=== PATIENT | male | born 1990 | race American Indian/Alaskan Native ===

== ENCOUNTER 2020-03-10 20:22 | Emergency (ER) | payer SELFPAY ==
[2020-03-10 20:28] VITALS: BP 111/70
--- NOTE | 2020-03-10 20:38 | Emergency Department Report ---
Blank Doc - Documentation Documentation: 29-year-old male that presents with penile shaft swelling. This initial assessment/diagnostic orders/clinical plan/treatment(s) is/are subject to change based on patient's health status, clinical progression and re- assessment by fellow clinical providers in the ED. Further treatment and workup at subsequent clinical providers discretion. Patient/guardians urged not to elope from the ED as their condition may be serious if not clinically assessed and managed. Initial orders include: 1- Patient sent to MAIN ED for further evaluation and treatment 2- UA
[2020-03-10] MEDS ORDERED: metroNIDAZOLE 500 MG TAB PO STA (22:51)
[2020-03-10] MEDS ORDERED: AZITHROMYCIN 250 MG TAB PO ONE (22:51)
[2020-03-10] MEDS ORDERED: LIDOCAINE-MPF (1%) 10 MG/1 ML VIAL 5 ML INFILTRATI ONE (22:51)
--- NOTE | 2020-03-10 22:53 | Emergency Department Report ---
ED Male HPI - General Chief complaint: Urogenital-Male Stated complaint: PAIN AND DISCOMFORT ALL OVER Time Seen by Provider: 03/10/20 20:36 Source: patient Mode of arrival: Ambulatory Limitations: No Limitations - History of Present Illness Initial comments: During the history and physical examination, I am door puller and escorted by supply chain engineer/Equipment Cleaner And Tester Naima St Willett Patient is a 29-year-old gentleman who is not known to myself previously. He reports multiple female sexual partners within the past few months, reports only oral and vaginal intercourse, denies anal intercourse, and reports consistent condom use. He was seen by an outpatient primary care doctor recently, and started on Valtrex for suspected herpes. He presents to the ER with a complaint of painful swollen left-sided inguinal adenopathy, and discharge from his phallus, and swelling of his foreskin. He also endorses difficulty with urination. He denies headache, neck pain, chest pain, abdominal pain, shortness of breath. Symptoms present for the past few days, constant, do not radiate anywhere, do not have exacerbating or relieving factors that he is aware of, with the exception of palpation of the foreskin, and the left-sided inguinal adenopathy, which are uncomfortable for him. MD Complaint: penile discharge, hernia, other -: days(s) Location: penis, left inguinal region (Left-sided inguinal adenopathy) Radiation: none Severity: mild Quality: aching Consistency: intermittent Improves with: rest Worsens with: urination, palpation, movement discharge, swelling, mass, rash, dysuria. denies: urinary retention, blood in urine, incontinence - Related Data Sexually active: Yes Previous Rx's Medication Instructions Recorded Last Taken Type DOXYCYCLINE Hyclate [Vibramycin] 100 mg PO Q12HR #14 capsule 03/11/20 Unknown Rx Allergies Allergy/AdvReac Type Severity Reaction Status Date / Time No Known Allergies Allergy Verified 03/10/20 20:27 ED Review of Systems ROS: Stated complaint: PAIN AND DISCOMFORT ALL OVER Other details as noted in HPI Constitutional: denies: fever Eyes: denies: eye discharge ENT: denies: hearing loss Respiratory: denies: cough Cardiovascular: denies: chest pain Gastrointestinal: denies: abdominal pain Genitourinary: dysuria. denies: testicular pain, testicular mass Skin: lesions (Painless lesions on his scrotum) ED Past Medical Hx - Past Medical History Previous Medical History?: No - Surgical History Past Surgical History?: No - Social History Smoking Status: Never Smoker Substance Use Type: None - Medications Home Medications: Home Medications Medication Instructions Recorded Confirmed Last Taken Type DOXYCYCLINE Hyclate [Vibramycin] 100 mg PO Q12HR #14 capsule 03/11/20 Unknown Rx ED Physical Exam - General Limitations: No Limitations General appearance: alert, in no apparent distress - Head Head exam: Present: atraumatic, normocephalic - Eye Eye exam: Present: normal appearance, EOMI. Absent: nystagmus - ENT ENT exam: Present: normal exam, normal orophraynx, mucous membranes moist, normal external ear exam - Neck Neck exam: Present: normal inspection, full ROM. Absent: tenderness, meningismus - Respiratory Respiratory exam: Present: normal lung sounds bilaterally. Absent: respiratory distress, wheezes, rales, rhonchi, stridor - Cardiovascular Cardiovascular Exam: Present: regular rate, normal rhythm, normal heart sounds. Absent: bradycardia, tachycardia, irregular rhythm, systolic murmur, diastolic murmur, rubs, gallop - GI/Abdominal GI/Abdominal exam: Present: soft, normal bowel sounds. Absent: distended, tenderness, guarding, rebound, rigid - Rectal Rectal exam: Present: deferred - exam: Present: testicular tenderness (There is normal testicular lie. There is normal cremasteric reflex. There is no testicular tenderness. There is no testicular swelling). Absent: normal inspection, circumcision (The patient is not circumcised. The foreskin retracts. There is a puslike discharge noted within the foreskin. There is left-sided inguinal adenopathy.) External exam: Present: lesions (Painless lesions noted on the scrotum.) - Extremities Exam Extremities exam: Present: normal inspection, full ROM, normal capillary refill, other (2+ pulses noted in the bilateral upper and lower extremities. There is no palpable cord. negative Homans sign. Muscular compartments are soft. The pelvis is stable.). Absent: tenderness, pedal edema, joint swelling, calf tenderness - Back Exam Back exam: Present: normal inspection, full ROM. Absent: tenderness, CVA tenderness (R), CVA tenderness (L), paraspinal tenderness, vertebral tenderness - Neurological Exam Neurological exam: Present: alert, oriented X3, normal gait, other (No facial droop. Tongue midline. Extraocular movements intact bilaterally. Facial sensation intact to light touch in V1, V2, V3 distribution bilaterally. 5 and a 5 strength in 4 extremities. Sensation intact to light touch in 4 extremities.). Absent: motor sensory deficit - Psychiatric Psychiatric exam: Present: normal affect, normal mood - Skin Skin exam: Present: warm, dry, intact, normal color. Absent: rash ED Course Vital Signs 03/10/20 20:27 Temperature 98.8 F Pulse Rate 95 H Respiratory 18 Rate Blood Pressure 111/70 O2 Sat by Pulse 99 Oximetry ED Medical Decision Making - Lab Data Vital Signs 03/10/20 20:27 Temperature 98.8 F Pulse Rate 95 H Respiratory 18 Rate Blood Pressure 111/70 O2 Sat by Pulse 99 Oximetry Lab Results 03/10/20 Range/Units Unknown Urine Color Yellow (Yellow) Urine Turbidity Slightly-cloudy (Clear) Urine pH 7.0 (5.0-7.0) Ur Specific [place] 1.026 (1.003-1.030) Urine Protein <15 mg/dl (Negative) mg/dL Urine Glucose (UA) Neg (Negative) mg/dL Urine Ketones Neg (Negative) mg/dL Urine Blood Neg (Negative) Urine Nitrite Neg (Negative) Urine Bilirubin Neg (Negative) Urine Urobilinogen 4.0 (<2.0) mg/dL Ur Leukocyte Esterase Tr (Negative) Urine WBC (Auto) 14.0 H (0.0-6.0) /HPF Urine RBC (Auto) 9.0 (0.0-6.0) /HPF U Epithel Cells (Auto) 1.0 (0-13.0) /HPF Urine Bacteria (Auto) 1+ (Negative) /HPF Amorphous Crystals Few Urine Mucus 3+ /HPF - Medical Decision Making Differential diagnosis, include but not limited to: Gonorrhea, chlamydia, trichomoniasis, reactive left-sided inguinal adenopathy, balanitis, urethritis Assessment and plan: 29-year-old gentleman presenting with left-sided inguinal adenopathy, clinical balanitis, foreskin that retracts, no evidence of phimosis or paraphimosis at this time. Urinalysis is reviewed and appreciated. Patient treated with Rocephin, azithromycin, And Flagyl. We discussed the need to follow-up with an outpatient primary care doctor for further STI testing. We will discharge with doxycycline. Patient declines pain medicine at this time. We also discussed proper foreskin hygiene and care Critical care attestation.: If time is entered above; I have spent that time in minutes in the direct care of this critically ill patient, excluding procedure time. ED Disposition Clinical Impression: Inguinal adenopathy, Balanitis, Urethritis Disposition: TO HOME OR SELFCARE Is pt being admited?: No Does the pt Need Aspirin: No Condition: Stable Instructions: Nonspecific Urethritis in Men (ED) Additional Instructions: Cultures were sent today, and results will be available next 3-5 days. Please have your primary care doctor call the medical records department to obtain your culture results. Take the antibiotic therapy as directed. Take the nausea medication and pain medication as directed. I recommend outpatient testing for sexually transmitted diseases, including hepatitis, syphilis and HIV. I also recommend that you abstain from sexual activity until you have completed her antibiotic therapy, a physician states that it is safe for you to resume sexual activity, and any partners that you have been sexually active with have been tested/treated/evaluated for sexual transmitted diseases. Please follow-up with physician within 3-5 days. I recommend that you return to the ER right away with worsening pain, migration of pain, intractable nausea/vomiting, inability tolerate liquid feeds. Patient may take [id number] Tylenol and/or ibuprofen as needed for pain. Please make certain to wash and clean the foreskin with warm compress and gentle water as described and directed. Do not consume alcohol while taking the medications. Do not consume alcohol for at least 10 days Referrals: RAVEN BANSAL MD [Primary Care Provider] - 3-5 Days [facility] [Provider Group] - 3-5 Days [facility] [Outside] - 3-5 Days Forms: STI Treatment and Prevention
[2020-03-11 00:01] LABS: Amorphous Crystals,Urine Few; Bacteria,Urine 1+ /HPF (Negative); Bilirubin,Urine NEG (Negative); Blood,Urine NEG (Negative); Color,Urine Yellow (Yellow); Mucus,Urine 3+ /HPF; Protein,Urine <15 mg/dL mg/dL (Negative)
== END 2020-03-11 01:13 | disposition home or self-care (01) ==
LOC: ED 20:22
DX: R59.0 Localized enlarged lymph nodes (principal); N48.1 Balanitis; N34.2 Other urethritis
CPT/HCPCS: 81001; 96372; 99283; J0696

== ENCOUNTER 2020-05-06 08:58 | Emergency (ER) | payer SELFPAY ==
[2020-05-06 09:07] VITALS: BP 104/64
[2020-05-06] MEDS ORDERED: LIDOCAINE-MPF (1%) 10 MG/1 ML VIAL 5 ML INFILTRATI ONE (10:05)
[2020-05-06] MEDS ORDERED: AZITHROMYCIN 250 MG TAB PO ONE (10:05)
[2020-05-06 10:54] LABS: Mucus,Urine 3+ /HPF
[2020-05-06 10:55] LABS: Bilirubin,Urine NEG (Negative); Blood,Urine NEG (Negative); Color,Urine Yellow (Yellow); Protein,Urine <15 mg/dL mg/dL (Negative)
--- NOTE | 2020-05-06 10:56 | Emergency Department Report ---
ED Male HPI - General Chief complaint: Urogenital-Male Stated complaint: HARD TO URINATE Time Seen by Provider: 05/06/20 09:33 Source: patient Mode of arrival: Ambulatory Limitations: No Limitations - History of Present Illness Initial comments: Patient is a 29-year-old male presents emergency room with complaints of swelling to the penis that began yesterday. He states he has some mild discomfort but not significant pain. He states he has not been able to fully retract the foreskin. He is uncircumcised. He is able to urinate. He states that his urine does appear slightly darker. Denies any penile discharge, dysuria, abdominal pain, pain or swelling to the testicles, nausea, vomiting, diarrhea, fever. Patient states that this occurred once in the past when he had chlamydia and had the same exact symptoms of swelling of the penis and unable to retract the foreskin. He states that the last time the swelling was actually worse and does not appear to be as bad this time. He states that he was supposed to follow-up to get a circumcision but never followed up. He states he is sexually active and occasionally uses protection. He denies any other past medical history. No allergies to medications. - Related Data Previous Rx's Medication Instructions Recorded Last Taken Type DOXYCYCLINE Hyclate [Vibramycin] 100 mg PO Q12HR #14 capsule 03/11/20 Unknown Rx Doxycycline Hyclate [Doxycycline 100 mg PO BID 10 Days #20 tab 05/06/20 Unknown Rx Hyclate TAB] Allergies Allergy/AdvReac Type Severity Reaction Status Date / Time No Known Allergies Allergy Verified 03/10/20 20:27 ED Review of Systems ROS: Stated complaint: HARD TO URINATE Other details as noted in HPI Comment: All other systems reviewed and negative ED Past Medical Hx - Past Medical History Previous Medical History?: No - Surgical History Past Surgical History?: No - Social History Smoking Status: Never Smoker Substance Use Type: None - Medications Home Medications: Home Medications Medication Instructions Recorded Confirmed Last Taken Type DOXYCYCLINE Hyclate [Vibramycin] 100 mg PO Q12HR #14 capsule 03/11/20 Unknown Rx Doxycycline Hyclate [Doxycycline 100 mg PO BID 10 Days #20 tab 05/06/20 Unknown Rx Hyclate TAB] ED Physical Exam - General Limitations: No Limitations General appearance: alert, in no apparent distress - Head Head exam: Present: atraumatic, normocephalic - Eye Eye exam: Present: normal appearance - ENT ENT exam: Present: mucous membranes moist - Respiratory Respiratory exam: Present: normal lung sounds bilaterally. Absent: respiratory distress, wheezes, rales, rhonchi, stridor, chest wall tenderness, accessory muscle use, decreased breath sounds, prolonged expiratory - Cardiovascular Cardiovascular Exam: Present: regular rate, normal rhythm, normal heart sounds. Absent: systolic murmur, diastolic murmur, rubs, gallop - GI/Abdominal GI/Abdominal exam: Present: soft, normal bowel sounds. Absent: distended, tenderness, guarding, rebound, rigid - exam: Present: vertical testicular lie, other (lamp shade joiner:Miguel, there is a mild amount of edema present to the distal half of the penis, unable to retract the foreskin which is consistent with phimosis, no signs of paraphimosis or strangulation, normal testicular lie, normal cremasteric reflex, he has LAD present to the left inguinal region). Absent: testicular tenderness, scrotal swelling, circumcision External exam: Absent: lesions, lacerations, ecchymosis, bleeding - Neurological Exam Neurological exam: Present: alert, oriented X3 - Psychiatric Psychiatric exam: Present: normal affect, normal mood - Skin Skin exam: Present: warm, dry, intact ED Course Vital Signs 05/06/20 09:06 Temperature 98.1 F Pulse Rate 73 Respiratory 18 Rate Blood Pressure 104/64 O2 Sat by Pulse 97 Oximetry ED Medical Decision Making - Medical Decision Making Patient is a 29-year-old male presents emergency room with complaints of swelling to the penis that began yesterday. He states he has some mild discomfort but not significant pain. He states he has not been able to fully retract the foreskin. He is uncircumcised. He is able to urinate. He states that his urine does appear slightly darker. Denies any penile discharge, dysuria, abdominal pain, pain or swelling to the testicles, nausea, vomiting, diarrhea, fever. Patient states that this occurred once in the past when he had chlamydia and had the same exact symptoms of swelling of the penis and unable to retract the foreskin. He states that the last time the swelling was actually worse and does not appear to be as bad this time. He states that he was supposed to follow-up to get a circumcision but never followed up. He states he is sexually active and occasionally uses protection. He denies any other past medical history. No allergies to medications. vitals are normal. on exam: lamp shade joiner:Miguel, there is a mild amount of edema present to the distal half of the penis, unable to retract the foreskin which is consistent with phimosis, no signs of paraphimosis or strangulation, normal testicular lie, normal cremasteric reflex, he has LAD present to the left inguinal region. Patient was evaluated at the bedside by Dr. Perez, ER attending who advised to treat patient prophylactically for G/C and have patient follow-up with urology due to phimosis. UA shows 10 WBCs and trace leukocyte esterase. G/C sent. pt prophylactically treated for G/C with azithromycin and ceftriaxone. pt given prescription for doxycycline and given information on foreskin hygiene. Discussed phimosis with the patient and the importance of urology follow-up and discussed very strict return precautions with patient. Advised patient to please take medication as prescribed. Please follow-up with a urologist. Please follow-up with a clinic or the health department to receive a full STD panel including syphilis and HIV. 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 Please have any partner tested and treated as well. Please avoid sexual intercourse for 10 days. Return to emergency room for any new or worsening symptoms. Critical care attestation.: If time is entered above; I have spent that time in minutes in the direct care of this critically ill patient, excluding procedure time. ED Disposition Clinical Impression: Phimosis of penis, Concern about STD in male without diagnosis Disposition: DC-01 TO HOME OR SELFCARE Is pt being admited?: No Does the pt Need Aspirin: No Condition: Stable Instructions: Sexually Transmitted Diseases (ED), Safe Sex (ED), Phimosis (ED) Additional Instructions: please take medication as prescribed. Please follow-up with a urologist. Please follow-up with a clinic or the health department to receive a full STD panel including syphilis and HIV. 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 Please have any partner tested and treated as well. Please avoid sexual intercourse for 10 days. Return to emergency room for any new or worsening symptoms. [employer] Address: [address] [place] [address] Prescriptions: Doxycycline Hyclate [Doxycycline Hyclate TAB] 100 mg PO BID 10 Days #20 tab Referrals: NICHOLAS RIOS MD [Staff Physician] - 2-3 Days [facility] [Outside] - 2-3 Days [facility] [Provider Group] - 2-3 Days Time of Disposition: 11:00 Print Language: GREENLANDIC
== END 2020-05-06 11:49 | disposition home or self-care (01) ==
LOC: ED 08:58
DX: N47.1 Phimosis (principal); Z79.899 Other long term (current) drug therapy; Z71.1 Person with feared health complaint in whom no diagnosis is made
CPT/HCPCS: 81001; 87086; 87591; 96372; 99283; J0696

== ENCOUNTER 2020-08-15 13:23 | Emergency (ER) | payer SELFPAY ==
[2020-08-15 13:35] VITALS: BP 102/65
--- NOTE | 2020-08-15 13:40 | Emergency Department Report ---
ED General Adult HPI - General Chief complaint: Extremity Injury, Upper Stated complaint: RT HAND PAIN Time Seen by Provider: 08/15/20 13:37 Source: patient Mode of arrival: Ambulatory Limitations: No Limitations - History of Present Illness Initial comments: 30-year-old -Cub[place] male patient presents with complaints of right hand pain x2 days after a couch fell on his hand while moving. He rates his pain as a 7/10 in severity. He denies any numbness/tingling or weakness in the hand, however states it is difficult to make a full fist. Patient rates his pain as a 7/10 in severity has not tried any OTC medicine for his symptoms Severity scale (0 -10): 7 - Related Data Previous Rx's Medication Instructions Recorded Last Taken Type DOXYCYCLINE Hyclate [Vibramycin] 100 mg PO Q12HR #14 capsule 03/11/20 Unknown Rx Doxycycline Hyclate [Doxycycline 100 mg PO BID 10 Days #20 tab 05/06/20 Unknown Rx Hyclate TAB] Acetaminophen/Codeine [Tylenol 1 tab PO Q8H PRN #8 tab 08/15/20 Unknown Rx /Codeine # 3 tab] Diclofenac Sodium 50 mg PO TID PRN #21 tablet. 08/15/20 Unknown Rx Allergies Allergy/AdvReac Type Severity Reaction Status Date / Time No Known Allergies Allergy Verified 03/10/20 20:27 ED Review of Systems ROS: Stated complaint: RT HAND PAIN Other details as noted in HPI Constitutional: denies: chills, fever, malaise Respiratory: denies: cough, shortness of breath Cardiovascular: denies: chest pain Musculoskeletal: joint swelling, arthralgia Neurological: denies: headache, weakness, numbness, paresthesias Hematological/Lymphatic: denies: easy bruising ED Past Medical Hx - Past Medical History Previous Medical History?: No - Surgical History Past Surgical History?: No - Social History Smoking Status: Never Smoker Substance Use Type: None - Medications Home Medications: Home Medications Medication Instructions Recorded Confirmed Last Taken Type DOXYCYCLINE Hyclate [Vibramycin] 100 mg PO Q12HR #14 capsule 03/11/20 Unknown Rx Doxycycline Hyclate [Doxycycline 100 mg PO BID 10 Days #20 tab 05/06/20 Unknown Rx Hyclate TAB] Acetaminophen/Codeine [Tylenol 1 tab PO Q8H PRN #8 tab 08/15/20 Unknown Rx /Codeine # 3 tab] Diclofenac Sodium 50 mg PO TID PRN #21 tablet. 08/15/20 Unknown Rx ED Physical Exam - General Limitations: No Limitations General appearance: alert, in no apparent distress - Head Head exam: Present: atraumatic, normocephalic - Eye Eye exam: Present: normal appearance - ENT ENT exam: Present: mucous membranes moist - Cardiovascular Cardiovascular Exam: Present: regular rate, normal rhythm. Absent: systolic murmur, diastolic murmur, rubs, gallop - GI/Abdominal GI/Abdominal exam: Present: soft - Extremities Exam Extremities exam: Present: other (Tenderness to palpation noted to the third, fourth, and fifth metacarpals with mild to moderate swelling noted; no erythema noted; patient has normal perfusion of the fingers and sensation; patient is able to make a fist) - Back Exam Back exam: Present: full ROM - Neurological Exam Neurological exam: Present: alert, oriented X3 - Psychiatric Psychiatric exam: Present: normal affect, normal mood - Skin Skin exam: Present: warm, dry, intact, normal color. Absent: rash, cyanosis, diaphoretic ED Course Vital Signs 08/15/20 13:34 Temperature 98.7 F Pulse Rate 72 Respiratory 16 Rate Blood Pressure 102/65 [Right] O2 Sat by Pulse 97 Oximetry - Procedure Description Procedures done: Ulnar gutter splint applied to right hand patient has normal perfusion and sensation of the fingers post splint application. He denies any pain from the splint.. Tolerated procedure well. ED Medical Decision Making - Radiology Data Radiology results: report reviewed RIGHT HAND 3 VIEW(S) INDICATION / CLINICAL INFORMATION: 3rd-5th MC swelling/pain, compression injury COMPARISON: None available. FINDINGS: BONES / JOINT(S): There is an acute fracture of the right fourth metacarpal neck with mild apex dorsal angulation. No joint subluxation or dislocation. No additional fracture. SOFT TISSUES: Mild soft tissue swelling. ADDITIONAL FINDINGS: None. IMPRESSION: Acute fourth metacarpal neck fracture. - Medical Decision Making 30-year-old -[place] male patient presents with complaints of right hand pain x2 days after a couch fell on his hand while moving. He rates his pain as a 7/10 in severity. He denies any numbness/tingling or weakness in the hand, however states it is difficult to make a full fist. Patient rates his pain as a 7/10 in severity has not tried any OTC medicine for his symptoms X-ray shows fracture of the fourth distal metacarpal. Patient placed in ulnar gutter splint. Recommend follow-up with orthopedics within 2 to 3 days. He is well-appearing and stable for discharge home. Strict return precautions were discussed in detail with patient who verbalizes understanding. Critical care attestation.: If time is entered above; I have spent that time in minutes in the direct care of this critically ill patient, excluding procedure time. ED Disposition Clinical Impression: Fracture of fourth metacarpal bone of right hand Qualifiers: Encounter type: initial encounter Fracture type: closed Metacarpal location: neck Fracture alignment: nondisplaced Qualified Code(s): S62.364A - Nondisplaced fracture of neck of fourth metacarpal bone, right hand, initial encounter for closed fracture Disposition: TO HOME OR SELFCARE Is pt being admited?: No Condition: Stable Instructions: Metacarpal Fracture, Cast or Splint Care, Adult Prescriptions: Diclofenac Sodium 50 mg PO TID PRN #21 tablet. PRN Reason: Pain, Moderate (4-6) Acetaminophen/Codeine [Tylenol /Codeine # 3 tab] 1 tab PO Q8H PRN #8 tab PRN Reason: Pain , Severe (7-10) Referrals: [facility] [Provider Group] - 3-5 Days Forms: Work/School Release Form(ED)
--- NOTE | 2020-08-15 14:02 | XRay Report ---
RIGHT HAND 3 VIEW(S) INDICATION / CLINICAL INFORMATION: 3rd-5th MC swelling/pain, compression injury COMPARISON: None available. FINDINGS: BONES / JOINT(S): There is an acute fracture of the right fourth metacarpal neck with mild apex dorsa l angulation. No joint subluxation or dislocation. No additional fracture. SOFT TISSUES: Mild soft tissue swelling. ADDITIONAL FINDINGS: None. IMPRESSION: Acute fourth metacarpal neck fracture. Signer Name: Jon Bernabe MD Signed: 08/15/2020 1:58 PM Workstation Name: [id number]
== END 2020-08-15 15:59 | disposition home or self-care (01) ==
LOC: ED 13:23
DX: S62.364A Nondisplaced fracture of neck of fourth metacarpal bone, right hand, initial encounter for closed fracture (principal); Z79.899 Other long term (current) drug therapy; W18.30XA Fall on same level, unspecified, initial encounter; Y93.89 Activity, other specified; Y92.89 Other specified places as the place of occurrence of the external cause; Y99.8 Other external cause status
CPT/HCPCS: 99283

== ENCOUNTER 2021-12-29 07:51 | Emergency (ER) | payer OTHER ==
[2021-12-29 08:04] VITALS: BP 111/73
[2021-12-29] MEDS ORDERED: LIDOCAINE-MPF (1%) 10 MG/1 ML VIAL 5 ML INFILTRATI ONE (09:42)
--- NOTE | 2021-12-29 09:47 | Emergency Department Report ---
ED Male HPI - General Chief complaint: Urogenital-Male Stated complaint: BODY PAIN Time Seen by Provider: 12/29/21 09:42 Source: patient Mode of arrival: Ambulatory Limitations: No Limitations - History of Present Illness Initial comments: Patient is a 31-year-old male who comes to the ER complaining of penile discharge and herpes outbreak. He reports having sex with 1 female partner. 2 days later he developed dysuria. He describes it as tingling with urination. And then noted penile discharge. He denies testicular pain abdominal pain or fever. -: Gradual, days(s) Location: penis Improves with: none Worsens with: urination discharge, rash. denies: swelling, mass, urinary retention, blood in urine, dysuria, fever, nausea/vomiting, incontinence - Related Data Sexually active: Yes Previous Rx's Medication Instructions Recorded Last Taken Type Azithromycin [Zithromax Z-ABEL] 1,000 mg PO ONCE #4 12/29/21 Unknown Rx valACYclovir [Valtrex] 500 mg PO BID #10 tab 12/29/21 Unknown Rx Allergies Allergy/AdvReac Type Severity Reaction Status Date / Time No Known Allergies Allergy Verified 12/29/21 10:34 ED Review of Systems ROS: Stated complaint: BODY PAIN Other details as noted in HPI Comment: All other systems reviewed and negative ED Past Medical Hx - Past Medical History Previous Medical History?: Yes Additional medical history: herpes - Surgical History Past Surgical History?: No - Family History Family history: no significant - Social History Smoking Status: Never Smoker Substance Use Type: None - Medications Home Medications: Home Medications Medication Instructions Recorded Confirmed Last Taken Type Azithromycin [Zithromax Z-ABEL] 1,000 mg PO ONCE #4 12/29/21 Unknown Rx valACYclovir [Valtrex] 500 mg PO BID #10 tab 12/29/21 Unknown Rx ED Physical Exam - General Limitations: No Limitations General appearance: alert, in no apparent distress - Head Head exam: Present: atraumatic, normocephalic - Eye Eye exam: Present: normal appearance - ENT ENT exam: Present: mucous membranes moist - Neck Neck exam: Present: normal inspection - Respiratory Respiratory exam: Present: normal lung sounds bilaterally. Absent: respiratory distress - Cardiovascular Cardiovascular Exam: Present: regular rate, normal rhythm. Absent: systolic murmur, diastolic murmur, rubs, gallop - GI/Abdominal GI/Abdominal exam: Present: soft, normal bowel sounds - Rectal Rectal exam: Present: deferred - Extremities Exam Extremities exam: Present: normal inspection - Back Exam Back exam: Present: normal inspection - Neurological Exam Neurological exam: Present: alert, oriented X3 - Psychiatric Psychiatric exam: Present: normal affect, normal mood - Skin Skin exam: Present: warm, dry, intact, normal color. Absent: rash ED Course Vital Signs 12/29/21 12/29/21 07:59 10:38 Temperature 98.8 F 98.0 F Pulse Rate 66 66 Respiratory 20 16 Rate Blood Pressure 111/73 111/73 [Left] O2 Sat by Pulse 100 100 Oximetry ED Medical Decision Making - Medical Decision Making Patient comes to the emergency room complaining of tingling on urination and yellow penile discharge. He reports a recent exposure to what he thinks is chlamydia. Patient will be empirically treated for STD. Patient also is having an active outbreak of his herpes. He is requesting a re fill of his antiviral. Denies testicular pain. Denies abdominal pain. No fever. Vital Signs 12/29/21 12/29/21 07:59 10:38 Temperature 98.8 F 98.0 F Pulse Rate 66 66 Respiratory 20 16 Rate Blood Pressure 111/73 111/73 [Left] O2 Sat by Pulse 100 100 Oximetry - Differential Diagnosis Male STI Critical care attestation.: If time is entered above; I have spent that time in minutes in the direct care of this critically ill patient, excluding procedure time. ED Disposition Clinical Impression: Concern about STD in male without diagnosis Genital herpes Qualifiers: Herpes simplex infection site: unspecified Qualified Code(s): A60.00 - Herpesviral infection of urogenital system, unspecified Disposition: 01 HOME / SELF CARE / HOMELESS Is pt being admited?: No Does the pt Need Aspirin: No Condition: Stable Instructions: Genital Herpes Additional Instructions: Occasions as ordered today. It is important that she take them just as prescribed Follow-up with PCP. Referral below Prescriptions: valACYclovir [Valtrex] 500 mg PO BID #10 tab Azithromycin [Zithromax Z-ABEL] 1,000 mg PO ONCE #4 Referrals: YAMILET BAGLEY MD [Staff Physician] - 3-5 Days Time of Disposition: 09:47
== END 2021-12-29 10:38 | disposition home or self-care (01) ==
LOC: ED 07:51
DX: A60.00 Herpesviral infection of urogenital system, unspecified (principal); Z20.2 Contact with and (suspected) exposure to infections with a predominantly sexual mode of transmission
CPT/HCPCS: 96372; 99282; J0696; J3490